=== PATIENT | male | born 1965 | race Caucasian/White ===

== ENCOUNTER 2017-03-15 12:52 | Observation (INO) | payer OTHER ==
[~2017-03-15] VITALS: Ht 172.7 cm; Wt 90.8 kg
[~2017-03-15 12:52] MED LIST: LITE COAT ASPI325 M1 PO; LOPRESSOR25 MG PO; METOPROLOL SUCC25 MG PO; PRINIVIL10 MG PO; SIMVASTATIN80 M1 PO; ZESTRIL10 MG PO; ZOCOR80 MG PO
[2017-03-15 13:41] LABS: MCH 31.1 PG (29.0-34.0); MCHC 34.2 G/DL (30.0-36.0); MCV 90.9 FL (86-99); MEAN PLAT.VOLUME 8.1 uM^3 (9.0-12.4); PLATELET COUNT 451 K/uL (156-360); RBC DIS.WIDTH-CV 12.4 % (11.8-14.6); RED BLOOD COUNT 5.72 M/uL (4.00-5.50); WHITE BLOOD COUNT 9.9 K/uL (4.1-10.2)
[2017-03-15 13:52] LABS: CHLORIDE 102 mEq/L (99-109); POTASSIUM 4.2 mEq/L (3.7-5.4); SODIUM 137 mEq/L (136-147)
[2017-03-15 13:54] LABS: GLUCOSE 98 mg/dL (70-99)
[2017-03-15 13:55] LABS: ANION GAP 10 MEQ/L (2-14)
[2017-03-15 13:58] LABS: GFR ESTIMATE (CALCULATED) > 59 mL/min/ (58.99-99999)
[2017-03-15 13:59] LABS: UREA NITROGEN (BUN) 14 mg/dL (9-23)
[2017-03-15 14:05] LABS: TROP-I INTERPRETATION NEGATIVE; TROPONIN-I < 0.01 ng/mL (0.0-0.30)
[2017-03-15 16:01] LABS: TOTAL BILIRUBIN 1.3 mg/dL (0.0-1.0)
[2017-03-15 16:02] LABS: ALKALINE PHOSPHATASE 80 IU/L (3-129)
[2017-03-15 16:05] LABS: DIRECT BILIRUBIN 0.3 mg/dL (0.0-0.3)
[2017-03-15 16:06] LABS: LIPASE 41 U/L (1.0-51.0)
[2017-03-15 17:25] LABS: D-DIMER ELISA < 150.00 ng/mLDDU (<230)
[2017-03-15 17:55] LABS: ADD MIUA? NO; BILIRUBIN NEGATIVE; BLOOD NEGATIVE; COLOR STRAW ((YELLOW)); GLUCOSE (STRIP) NEGATIVE; KETONES 5; LEUKOCYTES NEGATIVE; NITRITE NEGATIVE; PROTEIN (STRIP) NEGATIVE; SPECIFIC GRAVITY 1.008 (1.000-1.030); UCUL ADDED? NO; UROBILINOGEN 0.2 MG/DL (0.2-1.0)
[2017-03-15 19:26] VITALS: BP 126/74
[2017-03-15 23:56] VITALS: BP 94/55
[2017-03-16 01:02] LABS: TROP-I INTERPRETATION NEGATIVE; TROPONIN-I < 0.01 ng/mL (0.0-0.30)
[2017-03-16 03:30] VITALS: BP 97/55
[2017-03-16 05:44] LABS: HDL CHOLESTEROL 30 MG/DL (Desirable>=40); LDL CHOLESTEROL 143 mg/dL (Desirable<100); NON-HDL CHOLESTEROL 186 mg/dL (Desirable<160); TOTAL CHOLESTEROL 216 mg/dL (Desirable<200); TRIGLYCERIDES 214 MG/DL (Normal: <150)
[2017-03-16 06:07] LABS: TROP-I INTERPRETATION NEGATIVE; TROPONIN-I < 0.01 ng/mL (0.0-0.30)
[2017-03-16 07:58] VITALS: BP 117/75
[2017-03-16 09:05] LABS: Estimated Average Glucose 108 mg/dL (70-123); HEMOGLOBIN A1c (GLYCOHEMOGLOB) 5.4 % HGB (Below 5.7)
[2017-03-16 11:29] VITALS: BP 123/68
[2017-03-16] MEDS ORDERED: ATORVASTATIN CA20 MG PO (14:59)
[2017-03-16] MEDS ORDERED: LOPRESSOR25 MG PO (14:59)
[2017-03-16] MEDS ORDERED: MAG-AL PLUS SUS30 ML PO (14:59)
[2017-03-16] MEDS ORDERED: LITE COAT ASPI325 M1 PO (14:59)
== END 2017-03-16 15:40 | disposition home or self-care (01) ==
LOC: EME 12:52 → 5WEST 16:44 → EDOF 16:44 → ENRESERV 16:47 → 5WEST 18:58
PROVIDERS: Internal Medicine
DX: R07.89 Other chest pain (principal); R10.13 Epigastric pain; I10 Essential (primary) hypertension; E78.5 Hyperlipidemia, unspecified; Z91.14 Patient's other noncompliance with medication regimen; I25.10 Atherosclerotic heart disease of native coronary artery without angina pectoris; Z95.5 Presence of coronary angioplasty implant and graft; I25.2 Old myocardial infarction; E03.9 Hypothyroidism, unspecified; T46.5X6A Underdosing of other antihypertensive drugs, initial encounter; T38.1X6A Underdosing of thyroid hormones and substitutes, initial encounter; Z91.120 Patient's intentional underdosing of medication regimen due to financial hardship; E66.01 Morbid (severe) obesity due to excess calories; Z90.49 Acquired absence of other specified parts of digestive tract; Z87.891 Personal history of nicotine dependence; Z79.82 Long term (current) use of aspirin
CPT/HCPCS: 71020; 80048; 80061; 80076; 81003; 83036; 83690; 84484; 85027; 85379; 93005; 99281; 99285; G0378; J1644

== ENCOUNTER → 2017-06-07 | Outpatient (CLI) | payer OTHER ==
[~2017-06-07] MED LIST changes: +ATORVASTATIN CA20 MG PO; +MAG-AL PLUS SUS30 ML PO
== END | disposition home or self-care (01) ==
LOC: RAD 09:54
DX: E04.9 Nontoxic goiter, unspecified (principal); R93.8 Abnormal findings on diagnostic imaging of other specified body structures
CPT/HCPCS: 76536